=== PATIENT | female | born 1995 | race Hispanic/Latino ===

== ENCOUNTER 2018-10-04 20:06 | Emergency (ER) | payer SELFPAY ==
--- NOTE | 2018-10-04 21:29 | RAD ---
LEFT KNEE FOUR VIEWS: HISTORY: Left knee pain. TECHNIQUE: AP, lateral, and both oblique views of the left knee obtained. FINDINGS: Four views of the left knee demonstrate no evidence of left knee fractures, subluxations, or bony les ions. IMPRESSION: Normal four views left knee. POS: FFK
== END 2018-10-04 22:36 | disposition home or self-care (01) ==
LOC: ERS 20:06
DX: M25.562 Pain in left knee (principal); M25.572 Pain in left ankle and joints of left foot

== ENCOUNTER 2020-03-11 22:36 | Emergency (ER) | payer SELFPAY ==
[~2020-03-11 22:36] MED LIST: Iopamidol-370 76% 500 ML 1 ML ONE
[2020-03-11] MEDS ORDERED: Dexamethasone 10 MG/ML VIAL ONE (23:26)
[2020-03-11] MEDS ORDERED: Acetaminophen 500 MG TAB ONE (23:26)
--- NOTE | 2020-03-12 07:29 | CT ---
PRELIMINARY REPORT/[facility]/EMERGENCY AFTER HOURS PROCEDURE Exam: Enhanced CT neck History: Sore throat. Comparison: None. Findings: Included paranasal sinuses are clear. Lung apices are within normal limits. Parotid and s ubmandibular glands are within normal limits. Tonsils are enlarged and touch midline. There is associated narrowing of the nasopharynx. Left peritonsillar abscess is present measuring 1.3 x 1.1 c m. Reactive adenopathy is present. Largest lymph nodes are present level II with largest lymph node measuring 1.5 x 1.5 cm. Epiglottis and larynx are within normal limits. Impression: Tonsillar hypertrophy. Left peritonsillar abscess measuring 1.3 x 1.1 cm. ELECTRONICALLY SIGNED BY: Corina Hartman MD Mar 12, 2020 12:46:59 AM MANAGER TESTING This report is intended for review by the ordering physician only, in accordance of law. If you recei ve this report in error, please call [facility] at [phone]. FINAL REPORT EXAM: CT NECK SOFT TISSUE POST CONTRAST: HISTORY:Pain. Sore throat. COMPARISON:None CORRELATION:None FINDINGS: Brain parenchyma: No pathologic enhancement of the visualized brain parenchyma. Sinuses: Adequate aeration of the visualized paranasal sinuses and mastoid air cells. Orbits: Appropriate location of the visualized left ocular lenses. Appropriate attenuation the optic nerves and visualized ocular rectus muscles. Retrobulbar fat is preserved. Nasopharynx:Mild adenoid tonsillar prominence. Oral cavity:Aerodigestive tract is patent. No mucosal abnormality. Limited evaluation of the oral cav ity due to dental amalgam artifact. Midline fatty raphae of the tongue is preserved. Bilateral palatine tonsillar hypertrophy and soft tissue prominence. There are hypodensities just deep to the l eft parotid gland compatible with peritonsillar abscess. Hypopharynx: No mucosal abnormality. Epiglottis has a normal caliber. Preepiglottic fat is preserved .. Larynx: No mucosal abnormality with regards to the supraglottic, glottic and subglottic larynx. Mild narrowing of the posterior left and right subglottic larynx due to medial deviation of the carotid arteries. Paraspinal muscles: Symmetric attenuation of the paraspinal muscles and symmetric attenuation of the sternocleidomastoid muscles.. Parotid and salivary glands: Symmetric attenuation of the parotid and submandibular glands Vessels: No significant stenosis. Technique limits evaluation. Thyroid gland: Unremarkable. Spine: Vertebral body height is maintained. No fracture. No significant central canal stenosis or sig nificant neural foraminal narrowing. Limited evaluation due to technique. Lymph nodes: Enlarged left level II lymph node measures 1.3 x 1.6 cm and an enlarged right level II l ymph node measures 1.7 x 1.2 cm. Additional upper normal lymph nodes are noted. Lung apices and upper mediastinum: No acute abnormality. IMPRESSION: 1. This report is in agreement with initial report by [facility]. 2. Bilateral palatine tonsil and adenoid tonsillar hypertrophy. Left peritonsillar abscess. 3. Reactive lymphadenopathies in the soft tissues of the neck. Transcribed Date/Time: 03/12/2020 7:35 AM
== END 2020-03-12 01:13 | disposition home or self-care (01) ==
LOC: ERS 22:36
DX: J36 Peritonsillar abscess (principal)
CPT/HCPCS: 70491; J1100; Q9967